=== PATIENT | female | born 1955 | race Caucasian/White ===

== ENCOUNTER 2023-05-04 20:57 | Emergency (ER) | payer MEDICARE, OTHER ==
[~2023-05-04] VITALS: Ht 162.5 cm; Wt 63.5 kg
== END 2023-05-05 00:51 | disposition home or self-care (01) ==
LOC: ED 20:57
DX: S01.21XA Laceration without foreign body of nose, initial encounter (principal); S02.2XXA Fracture of nasal bones, initial encounter for closed fracture; J45.909 Unspecified asthma, uncomplicated; Z86.16 Personal history of COVID-19; Z98.890 Other specified postprocedural states; W01.10XA Fall on same level from slipping, tripping and stumbling with subsequent striking against unspecified object, initial encounter; Y93.89 Activity, other specified; Y92.89 Other specified places as the place of occurrence of the external cause; Y99.8 Other external cause status